=== PATIENT | female | born 1990 | race Caucasian/White ===

== ENCOUNTER 2020-06-14 08:11 | Day surgery (SDC) | payer BC ==
[2020-06-11 11:54] VITALS: BMI 25.6
--- NOTE | 2020-06-14 07:31 | P.HPOB ---
History of Present Illness H&P Date: 06/14/20 Chief Complaint: Missed 30 year old presents for suction D&C for missed at 10 weeks. Review of Systems All systems: negative Constitutional: Denies chills, Denies fever Eyes: denies blurred vision, denies pain Ears, nose, mouth and throat: Denies headache, Denies sore throat Cardiovascular: Denies chest pain, Denies shortness of breath Respiratory: Denies cough Gastrointestinal: Denies abdominal pain, Denies diarrhea, Denies nausea, Denies vomiting Genitourinary: Denies dysuria, Denies hematuria Musculoskeletal: Denies myalgias Integumentary: Denies pruritus, Denies rash Neurological: Denies numbness, Denies weakness Psychiatric: Denies anxiety, Denies depression Endocrine: Denies fatigue, Denies weight change Past Medical History Past Medical History: No Reported History Additional Past Medical History / Comment(s): Obstetric history: First was a vaginal delivery. This is her second and she is measuring 10 weeks with no heart tones on ultrasound last week History of Any Multi-Drug Resistant Organisms: None Reported Past Surgical History: Breast Surgery Additional Past Surgical History / Comment(s): breast reduction 2013 Past Anesthesia/Blood Transfusion Reactions: Postoperative Nausea & Vomiting (PONV) Smoking Status: Never smoker Medications and Allergies Home Medications Medication Instructions Recorded Confirmed Type No Known Home Medications 06/11/20 06/11/20 History Allergies Allergy/AdvReac Type Severity Reaction Status Date / Time Sulfa (Sulfonamide Allergy Anaphylaxis Verified 06/11/20 11:50 Antibiotics) Exam Osteopathic Statement: *. No significant issues noted on an osteopathic structural exam other than those noted in the History and Physical/Consult. Heart: Regular rate and rhythm Lungs: Clear to auscultation bilaterally Abdomen: Soft, nontender Extremities: Negative Homans sign Assessment and Plan (1) Missed Status: Acute Code(s): O02.1 - MISSED SNOMED Code(s): 94681126 Plan: 1. Suction D&C
[~2020-06-14 08:11] MED LIST: DEXAMETHASONE SOD PHOSPHATE 10 MG/ML 1 ML VIAL IV ONE; HYDROmorphone 0.5 MG/0.5 ML SYRINGE IVP PRN; LIDOCAINE 1% (10MG/ML) FOR IV START INTRADERMA PRN; ONDANSETRON 4 MG/2 ML VIAL IVP ONE; Pre Op ABX Message 1 EACH MISC MISCELLANE ONE; SCOPOLAMINE 1.5MG/72HR PATCH TRANSDERM ONE
[2020-06-14 08:35] VITALS: RESP 16; TEMP 9825
[2020-06-14] MEDS: LACTATED RINGERS 1,000 ML IV SCH ×2 (08:52→12:00)
[2020-06-14] MEDS ORDERED: ONDANSETRON 4 MG/2 ML VIAL ONE (08:55)
[2020-06-14] MEDS ORDERED: MIDAZOLAM 2 MG/2 ML VIAL ONE (10:06)
[2020-06-14] MEDS ORDERED: KETOROLAC 30 MG/ML 1 ML VIAL ONE (10:06)
[2020-06-14] MEDS ORDERED: fentaNYL (PF) 50 MCG/ML 2 ML AMP ONE (10:06)
[2020-06-14] MEDS ORDERED: PROPOFOL 10 MG/ML 20 ML VIAL IV ONE (10:06)
--- NOTE | 2020-06-14 10:34 | P.OP ---
Date of Procedure: 06/14/20 Preoperative Diagnosis: 1. missed Postoperative Diagnosis: 1. missed Procedure(s) Performed: Suction D&C Anesthesia: MAC Surgeon: Ly Rivas Estimated Blood Loss (ml): 200 IV fluids (ml): 200 Urine output (ml): 100 Pathology: other (products of conception) Condition: stable Disposition: floor Description of Procedure: Patient is taken the operating room and general anesthesia obtained without difficulty. She is prepped and draped in normal sterile fashion dorsal lithotomy position, legs placed in candycane stirrups. Bladder was drained of all urine. Weighted speculum placed in vagina the anterior lip the cervix was grasped with single-tooth tenaculum. The cervix dilated to #10 Hegar dilator. The #10 curved suction curet was introduced into the uterus and hooked up to suction. This curet was passed several times to obtain tissue and blood. Sharp curet was used to gently ensure all tissue had been removed. Suction curet was passed a few more times. Hemostasis was achieved. All instruments removed from the vagina. Patient procedure well, sponge and instrument counts correct 2 and she was taken to recovery in stable condition.
[2020-06-14 12:39] VITALS: BP 116/75; PULSE 96
== END 2020-06-14 12:40 | disposition home or self-care (01) ==
LOC: OR 08:11 → MERGE 08:11 → OR 12:40
PROVIDERS: ATTEND Obstetrics & Gynecology
DX: O02.1 Missed abortion (principal); Z88.2 Allergy status to sulfonamides; Z98.890 Other specified postprocedural states
CPT/HCPCS: 86900; 86901; 86850; 59820; J2250; J1100; J2405; J3010; J1885; J2704; 88305

== ENCOUNTER 2021-06-15 06:03 | Inpatient (IN) | payer BC ==
[2021-06-15] MEDS ORDERED: LIDOCAINE 0.5% (PF) 5 MG/ML (50 ML SDV) SQ PRN (06:52)
[2021-06-15] MEDS ORDERED: CARBOPROST TROMETHAMINE 250 MCG/ML 1 ML AMP IM PRN (06:52)
[2021-06-15] MEDS ORDERED: TERBUTALINE 1 MG/ML VIAL SQ PRN (06:52)
[2021-06-15] MEDS ORDERED: METHYLERGONOVINE 0.2 MG/ML 1 ML AMP IM PRN (06:52)
[2021-06-15] MEDS ORDERED: OXYTOCIN 10 UNIT/ML 1 ML VIAL IM PRN (06:52)
[2021-06-15] MEDS: LACTATED RINGERS 1,000 ML IV SCH ×2 (06:55→19:23)
[2021-06-15] MEDS: OXYTOCIN 30 UNITS/500 ML NS 30 UNIT in SALINE 1 500ML.BAG IV SCH (06:56)
[2021-06-15 07:00] LABS: Basophils % (A) 0 %; Eosinophils # (A) 0.1 k/uL (0-0.7); Eosinophils % (A) 1 %; HCT 32.2 % (34.0-46.0); HGB 10.6 gm/dL (11.4-16.0); Hypochromasia Slight; Lymphocytes # (A) 1.3 k/uL (1.0-4.8); Lymphocytes % (A) 14 %; MCH 27.4 pg (25.0-35.0); MCHC 32.8 g/dL (31.0-37.0); MCV 83.4 fL (80.0-100.0); Mean Platelet Volume 9.2; Monocytes # (A) 0.6 k/uL (0-1.0); Monocytes % (A) 7 %; Neutrophils # (A) 6.9 k/uL (1.3-7.7); Neutrophils % (A) 75 %; Platelet Count 288 k/uL (150-450); Poikilocytosis Slight; RBC 3.86 m/uL (3.80-5.40); RDW 15.3 % (11.5-15.5); WBC 9.1 k/uL (3.8-10.6)
--- NOTE | 2021-06-15 08:38 | P.HPOB ---
History of Present Illness H&P Date: 06/15/21 Chief Complaint: induction of labor 31 year old presents at 39 weeks 6 days for induction of labor. Her cervix is 1-2/60/-2 and she is colt every 2-5 minutes. heart tones 140 with moderate variability and reactive. Review of Systems All systems: negative Constitutional: Denies chills, Denies fever Eyes: denies blurred vision, denies pain Ears, nose, mouth and throat: Denies headache, Denies sore throat Cardiovascular: Denies chest pain, Denies shortness of breath Respiratory: Denies cough Gastrointestinal: Denies abdominal pain, Denies diarrhea, Denies nausea, Denies vomiting Genitourinary: Denies dysuria, Denies hematuria Musculoskeletal: Denies myalgias Integumentary: Denies pruritus, Denies rash Neurological: Denies numbness, Denies weakness Psychiatric: Denies anxiety, Denies depression Endocrine: Denies fatigue, Denies weight change Past Medical History Past Medical History: No Reported History Additional Past Medical History / Comment(s): Obstetric history: First was a vaginal delivery. Second was a spontaneous . This is her third and she's had care with me since the first . History of Any Multi-Drug Resistant Organisms: None Reported Past Surgical History: Breast Surgery Additional Past Surgical History / Comment(s): breast reduction 2013 Past Anesthesia/Blood Transfusion Reactions: Postoperative Nausea & Vomiting (PONV) Past Psychological History: No Psychological Hx Reported Smoking Status: Never smoker Past Alcohol Use History: None Reported Past Drug Use History: None Reported - Past Family History Father Family Medical History: No Reported History Medications and Allergies Home Medications Medication Instructions Recorded Confirmed Type Pnv No.95/Ferrous Fum/Folic AC 1 tab PO DAILY 06/15/21 06/15/21 History [ Multivitamin Tablet] Allergies Allergy/AdvReac Type Severity Reaction Status Date / Time Sulfa (Sulfonamide Allergy Anaphylaxis Verified 06/15/21 06:33 Antibiotics) Exam Osteopathic Statement: *. No significant issues noted on an osteopathic structural exam other than those noted in the History and Physical/Consult. Vital Signs Temp Pulse Resp BP Pulse Ox 06/15/21 06:20 98.3 F 125 H 18 136/69 98 Intake and Output 06/14/21 06/15/21 06/15/21 22:59 06:59 14:59 Other: Weight 83.461 kg Heart: Regular rate and rhythm Lungs: Clear to auscultation bilaterally Abdomen: Soft, nontender Extremities: Negative Homans sign Results Result Diagrams: 06/15/21 06:49 Abnormal Lab Results - Last 24 Hours (Table) 06/15/21 Range/Units 06:49 Hgb 10.6 L (11.4-16.0) gm/dL Hct 32.2 L (34.0-46.0) % Assessment and Plan (1) Normal vaginal delivery Current Visit: Yes Status: Acute Code(s): O80 - ENCOUNTER FOR FULL-TERM UNCOMPLICATED DELIVERY SNOMED Code(s): 90570382 Plan: 1. induction of labor with amniotomy and pitocin
[2021-06-15] MEDS ORDERED: ROPIVACAINE 5MG/ML 20ML VIAL ONE (19:30)
[2021-06-15] MEDS ORDERED: SODIUM CHLORIDE 0.9% 100 ML BAG ONE (19:30)
[2021-06-15] MEDS ORDERED: fentaNYL (PF) 50 MCG/ML 5 ML AMP ONE (19:30)
[2021-06-15] MEDS ORDERED: ROPIVACAINE 100 MG, fentaNYL (PF). 200 MCG in SODIUM CHLORIDE 0.9% 76 ML EPIDURAL ONE (19:48)
[2021-06-16] MEDS: LACTATED RINGERS 1,000 ML IV SCH ×4 (01:01→20:33)
[2021-06-16] MEDS ORDERED: LACTATED RINGERS 1,000 ML IV ONE (01:02)
[2021-06-16] MEDS ORDERED: CITRIC ACID-SODIUM CITRATE 15 ML CUP PO ONE (01:02)
[2021-06-16] MEDS ORDERED: OXYTOCIN 30 UNITS/500 ML NS BAG IV ONE (01:12)
[2021-06-16] MEDS ORDERED: KETOROLAC 15 MG/ML 1 ML VIAL ONE (01:12)
[2021-06-16] MEDS ORDERED: MORPHINE SULFATE (PF) 0.3 MG/0.3 ML SYR ONE (01:12)
[2021-06-16] MEDS ORDERED: HYDROmorphone (PF) 1 MG/ML ONE (01:12)
[2021-06-16] MEDS ORDERED: LIDOCAINE 2% SYG (PF) 100 MG/5 ML ONE (01:12)
[2021-06-16] MEDS ORDERED: PHENYLEPHRINE-0.9% NACL SYG 1,000 MCG/10 ML SYRINGE ONE (01:12)
[2021-06-16] MEDS ORDERED: ONDANSETRON 4 MG/2 ML VIAL ONE (01:12)
[2021-06-16] MEDS ORDERED: diphenhydrAMINE 50 MG/ML 1 ML VIAL IVP PRN ×3 (01:30→01:59)
[2021-06-16] MEDS ORDERED: NALOXONE 0.4 MG/ML 1 ML VIAL IV PRN ×2 (01:30→01:59)
[2021-06-16] MEDS ORDERED: ONDANSETRON 4 MG/2 ML VIAL IVP PRN ×2 (01:30→01:59)
[2021-06-16] MEDS ORDERED: MORPHINE SULFATE 2 MG/ML SYRINGE IVP PRN (01:30)
[2021-06-16] MEDS: OXYTOCIN 30 UNITS/500 ML NS 30 UNIT in SALINE 1 500ML.BAG IV SCH (01:58)
[2021-06-16] MEDS ORDERED: diphenhydrAMINE 50 MG CAP PO PRN (01:59)
[2021-06-16] MEDS ORDERED: METOCLOPRAMIDE 5 MG/ML 2 ML VIAL IVP PRN (01:59)
[2021-06-16] MEDS ORDERED: ZOLPIDEM 5 MG TAB PO PRN (01:59)
[2021-06-16] MEDS ORDERED: diphenhydrAMINE 25 MG CAP PO PRN (01:59)
[2021-06-16] MEDS ORDERED: OXYTOCIN 30 UNITS/500 ML NS 30 UNIT in SALINE 1 500ML.BAG IV SCH (02:00)
[2021-06-16] MEDS: KETOROLAC 15 MG/ML 1 ML VIAL IVP SCH ×2 (08:13→20:28)
[2021-06-16] MEDS: SENNOSIDES-DOCUSATE SODIUM 1 EACH TAB PO SCH ×2 (08:15→19:45)
[2021-06-16] MEDS: ACETAMINOPHEN TAB 500 MG TAB PO SCH ×3 (10:49→20:28)
[2021-06-16] MEDS: IBUPROFEN 600 MG TAB PO SCH ×3 (14:33→21:11)
[2021-06-17] MEDS: ACETAMINOPHEN TAB 500 MG TAB PO SCH ×4 (00:14→23:37)
[2021-06-17] MEDS: IBUPROFEN 600 MG TAB PO SCH ×3 (05:28→19:36)
--- NOTE | 2021-06-17 07:07 | P.PN ---
Progress Note - Text Progress Note Date: 06/17/21 Postoperative day 1 status post section under spinal anesthesia, and intrathecal morphine given for postoperative analgesia, patient doing well, there is no anesthesia related complications Patient had no headache, vital signs stable Assessment and plan = postop day 1 status post , doing well there is no anesthesia related complication
[2021-06-17 07:39] LABS: Basophils % (A) 0 %; Eosinophils # (A) 0.1 k/uL (0-0.7); Eosinophils % (A) 0 %; HCT 24.4 % (34.0-46.0); Hypochromasia Moderate; Lymphocytes # (A) 1.3 k/uL (1.0-4.8); Lymphocytes % (A) 10 %; MCHC 32.7 g/dL (31.0-37.0); MCV 82.6 fL (80.0-100.0); Mean Platelet Volume 8.1; Monocytes # (A) 0.8 k/uL (0-1.0); Monocytes % (A) 6 %; Neutrophils # (A) 10.7 k/uL (1.3-7.7); Neutrophils % (A) 81 %; Platelet Count 243 k/uL (150-450); Poikilocytosis Slight; RBC 2.95 m/uL (3.80-5.40); RDW 15.5 % (11.5-15.5); WBC 13.1 k/uL (3.8-10.6)
[2021-06-17] MEDS: SENNOSIDES-DOCUSATE SODIUM 1 EACH TAB PO SCH ×2 (09:20→19:37)
--- NOTE | 2021-06-17 13:17 | P.OP ---
Date of Procedure: 06/16/21 Preoperative Diagnosis: 1. at 40 weeks 2. arrest of descent Postoperative Diagnosis: 1. at 40 weeks 2. arrest of descent Procedure(s) Performed: Primary low transverse Anesthesia: epidural Surgeon: Ly Rivas Clinical Safety Specialist #1: Machelle Juan Estimated Blood Loss (ml): 487 IV fluids (ml): 300 Urine output (ml): 200 Pathology: none sent Condition: stable Disposition: floor Indications for Procedure: 31-year-old presented for induction of labor. She did make it to complete and pushed for an hour and a half but did not make any descent after that. Informed consent was obtained and section was called using informed and shared decision-making. Operative Findings: Viable female, Apgars 9, 9, weight 8 lbs. 2 oz. Description of Procedure: Patient was taken to the operating room where spinal anesthesia was found be adequate. She was prepped and draped in normal sterile fashion in dorsal supine position with a leftward tilt. Pfannenstiel skin incision was made the scalpel and carried through to the underlying layer of fascia with the scalpel. Fascia was incised in midline and carried bilaterally with the Bond scissors. The superior aspect of the fascial incision was grasped with [place] clamps elevated and the underlying rectus muscles dissected off with the Bond's. Attention was then turned to inferior aspect of same incision which in a similar fashion was grasped tented up and the underlying rectus muscles dissected off with the Bond's. The rectus muscles were the midline and the peritoneum was identified tented up and entered sharply with the scalpel. The incision was extended superiorly and inferiorly with good visualization of the bladder. The bladder blade was inserted and the vesicouterine peritoneum was incised the Metzenbaums then carried bilaterally and bladder flap created digitally. A low transverse incision was then made on the uterus with the scalpel. This was hartman ied bilaterally and digital manner. Infant's head delivered atraumatically, nose and mouth bulb suctioned, cord clamped and cut, infant handed off to waiting nurses. Apgars 9,9, weight 8 lbs. 2 oz. Placenta delivered manually, intact with three-vessel cord. The uterus is exteriorized and cleared of all clots and debris. The uterine incision was closed with 0 Vicryl in a running locked fashion. Second layer of the same sutures used in imbricating fashion to obtain excellent hemostasis. Bladder flap was then reapproximated using 2-0 Vicryl in a running fashion. Both ovaries and tubes appeared normal. The uterus was placed back into the abdomen. The peritoneum was reapproximated using 2-0 Vicryl in a running fashion. The muscles were reapproximated using 2- 0 Vicryl in interrupted fashion. The fascia was reapproximated using 0 Vicryl in a running fashion. The subcutaneous tissues closed with 3-0 Vicryl running fashion. The skin was closed carlton. Patient tolerated the procedure well, sponge and instrument counts were correct times 2 and she was taken to the recovery room in stable condition.
--- NOTE | 2021-06-17 13:18 | P.PNOBGPC ---
Subjective - Subjective Principal diagnosis: Status post primary low transverse postop day #1 Interval history: Patient seen and examined. Denies nausea, vomiting, chest pain, shortness of breath or any calf pain. Her pain is well-controlled. Patient reports: Reports appetite normal, Reports voiding normally, Reports pain well controlled, Reports ambulating normally : doing well Objective - Vital Signs Latest vital signs: Vital Signs Temp Pulse Resp BP Pulse Ox 06/17/21 08:00 98.7 F 106 H 16 114/58 06/17/21 00:00 98.3 F 108 H 16 99/58 97 06/16/21 19:30 98.5 F 108 H 17 107/71 97 06/16/21 16:00 98.8 F 101 H 14 107/68 Intake and Output 06/16/21 06/17/21 06/17/21 22:59 06:59 14:59 Output Total 600 Balance -600 Output: Urine 600 Other: # Voids 2 - Exam Lungs: bilateral: normal Chest: Normal S1, Normal S2 Extremities: Present: normal Abdomen: Present: normal appearance, soft. Absent: distention, tenderness Incision: Present: normal, dry, intact Uterus: Present: normal, firm - Labs Labs: Abnormal Lab Results - Last 24 Hours (Table) 06/17/21 Range/Units 06:44 WBC 13.1 H (3.8-10.6) k/uL RBC 2.95 L (3.80-5.40) m/uL Hgb 8.0 L D (11.4-16.0) gm/dL Hct 24.4 L (34.0-46.0) % Neutrophils # 10.7 H (1.3-7.7) k/uL Assessment and Plan (1) Normal vaginal delivery Current Visit: Yes Status: Resolved Code(s): O80 - ENCOUNTER FOR FULL-TERM UNCOMPLICATED DELIVERY SNOMED Code(s): 17938815 (2) Status post primary low transverse section Current Visit: Yes Status: Acute Code(s): Z98.891 - HISTORY OF UTERINE SCAR FROM PREVIOUS SURGERY SNOMED Code(s): 464892064 Plan: 1. Continue care
[2021-06-18] MEDS: IBUPROFEN 600 MG TAB PO SCH ×3 (02:02→09:31)
[2021-06-18] MEDS: ACETAMINOPHEN TAB 500 MG TAB PO SCH ×2 (02:14→06:31)
[2021-06-18 07:53] VITALS: BP 124/77; PULSE 102; RESP 16; TEMP 98.7
[2021-06-18] MEDS: SENNOSIDES-DOCUSATE SODIUM 1 EACH TAB PO SCH (07:53)
--- NOTE | 2021-06-18 11:22 | P.DS ---
Providers Date of admission: 06/15/21 06:03 Expected date of discharge: 06/18/21 Attending physician: Ly Rivas Primary care physician: Stated None Hospital Course: This is a 31-year-old female 3 para 1 at 40-0/7 weeks who presented for induction of labor. She delivered via section a viable female infant with a weight of 8 lbs. 2 oz. on 06/16/2021 due to failure to progress. Please see dictated history and physical and operative reports for details of patient's admission. Postoperatively she has done well. She is passing flatus and bowel movement. She is urinating without difficulty. She is breast-feeding. Lochia is decreasing. Her pain is well-controlled. Vital signs are stable. Abdomen is soft with positive bowel sounds 4. Incision is clean dry and intact with carlton in place. Extremities show negative Homans. Impression is status post primary section postoperative day #2. Plan is to discharge home today. Routine postoperative and instructions are given. Carlton will be removed and Steri-Strips placed prior to discharge. Patient is advised to follow up with Dr. Rivas in 1 week for postoperative check and in 6 weeks for a check. She is advised to call the office if she has any further questions or concerns prior to her appointment time. Dr. Rivas has already sent her prescriptions into her pharmacy. Procedures: Primary low transverse section on 06/16/2021 Patient Condition at Discharge: Stable Plan - Discharge Summary New Discharge Prescriptions: New oxyCODONE HCL [OxyIR] 5 mg PO Q4HR PRN #20 tab PRN Reason: Pain Scale 4 - 6 Ibuprofen [Motrin] 600 mg PO Q6H #40 tab No Action Pnv No.95/Ferrous Fum/Folic AC [ Multivitamin Tablet] 1 tab PO DAILY Discharge Medication List Pnv No.95/Ferrous Fum/Folic AC [ Multivitamin Tablet] 1 tab PO DAILY 06/15/21 [History] Ibuprofen [Motrin] 600 mg PO Q6H #40 tab 06/17/21 [Rx] oxyCODONE HCL [OxyIR] 5 mg PO Q4HR PRN #20 tab 06/17/21 [Rx] Follow up Appointment(s)/Referral(s): Ly Rivas DO [Doctor of Osteopathic Medicine] - 07/27/21 3:45 pm (06-24-2021 @ 10:30a.m.) Discharge Disposition: HOME SELF-CARE
== END 2021-06-18 12:50 | disposition home or self-care (01) | DRG 788 ==
LOC: 4FBP 06:03
PROVIDERS: ADMIT Obstetrics & Gynecology; ATTEND Obstetrics & Gynecology
PROC: 3E033VJ Introduction of Other Hormone into Peripheral Vein, Percutaneous Approach (ICD-10-PCS; 2021-06-15)
PROC: 10907ZC Drainage of Amniotic Fluid, Therapeutic from Products of Conception, Via Natural or Artificial Opening (ICD-10-PCS; 2021-06-15)
PROC: 10D00Z1 Extraction of Products of Conception, Low, Open Approach (ICD-10-PCS; principal; 2021-06-16 01:12)
DX: O62.1 Secondary uterine inertia (principal); Z37.0 Single live birth; Z3A.40 40 weeks gestation of pregnancy; Z88.2 Allergy status to sulfonamides; Z98.890 Other specified postprocedural states
CPT/HCPCS: 85025; 86850; 86900; 86901